=== PATIENT | male | born 1980 | race American Indian/Alaskan Native ===

== ENCOUNTER 2017-11-09 16:34 | Emergency (ER) | payer BC ==
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
[2017-11-09 21:37] VITALS: BP 120/82
== END 2017-11-09 21:27 | disposition home or self-care (01) ==
LOC: ED 16:34
DX: J20.9 Acute bronchitis, unspecified (principal); F17.200 Nicotine dependence, unspecified, uncomplicated
CPT/HCPCS: 71046; 93005; 93010; 99283